=== PATIENT | male | born 1980 | race Caucasian/White ===

== ENCOUNTER 2020-11-28 01:04 | Emergency (ER) | payer SELFPAY ==
[2020-11-28 02:00] LABS: ABSOLUTE BASOPHILS # (AUTO) 0.1 10^3/uL (0.0-0.2); ABSOLUTE EOSINOPHILS # (AUTO) 0.1 10^3/uL (0.0-0.6); ABSOLUTE LYMPHOCYTES (AUTO) 2.7 10^3/uL (0.5-4.7); ABSOLUTE MONOCYTES (AUTO) 0.9 10^3/uL (0.1-1.4); ABSOLUTE NEUT (AUTO) 11.9 10^3/uL (1.7-8.2); BASOPHILS % (AUTO) 0.8 % (0-2); EOSINOPHILS % (AUTO) 0.7 % (0-6); HEMATOCRIT 41.6 % (37.9-51.0); HEMOGLOBIN 13.7 g/dL (13.5-17.0); LYMPHOCYTES % (AUTO) 17.1 % (13-45); MEAN CORPUSCULAR HEMOGLOBIN 27.9 pg (27.0-33.4); MEAN CORPUSCULAR HGB CONC 32.9 g/dL (32.0-36.0); MEAN CORPUSCULAR VOLUME 85 fl (80-97); MONOCYTES % (AUTO) 5.6 % (3-13); PLATELET COUNT 273 10^3/uL (150-450); RED BLOOD COUNT 4.91 10^6/uL (4.35-5.55); RED CELL DISTRIBUTION WIDTH 14.6 % (11.5-14.0); SEGMENTED NEUTROPHILS % (AUTO) 75.8 % (42-78); TOTAL CELLS COUNTED % (AUTO) 100 %; WHITE BLOOD COUNT 15.7 10^3/uL (4.0-10.5)
[2020-11-28 02:13] LABS: ALBUMIN 4.8 g/dL (3.5-5.0); ALKALINE PHOSPHATASE 71 U/L (38-126); ANION GAP 11 (5-19); ASPARTATE AMINO TRANSFERASE 33 U/L (17-59); BILIRUBIN,DIRECT 0.2 mg/dL (0.0-0.4); BILIRUBIN,TOTAL 0.3 mg/dL (0.2-1.3); BLOOD UREA NITROGEN 15 mg/dL (7-20); CALCIUM 9.7 mg/dL (8.4-10.2); CARBON DIOXIDE 27 mmol/L (22-30); CHLORIDE 100 mmol/L (98-107); GLUCOSE 115 mg/dL (75-110); TOTAL PROTEIN 7.9 g/dL (6.3-8.2)
[2020-11-28 02:15] LABS: ACETAMINOPHEN < 10 ug/mL (10-30); ALCOHOL < 10 mg/dL (NONE DETECTED); SALICYLATE < 1.0 mg/dL (2.0-20.0)
[2020-11-28] MEDS ORDERED: NICOTINE 14 MG/24 HR PATCH.TD24 TD ONE (02:57)
--- NOTE | 2020-11-28 03:01 | ER Document Report ---
ED General - Related Data Home Medications: none, stopped taking depakote, Haldol <YU MIR - Last Filed: 11/28/20 03:22> <JENNIFER LOYOLA - Last Filed: 11/28/20 12:32> <CASANDRAGUY Brenden - Last Filed: 11/28/20 13:55> - General Chief Complaint: Suicidal Ideation Stated Complaint: ETOH, SUICIDAL IDEATION Time Seen by Provider: 11/28/20 02:53 Primary Care Provider: [facility] [Outside] - Follow up as needed [facility] [Outside] - Follow up as needed - HPI Notes: Patient is a 40-year-old male with a history of paranoid schizophrenia and bipolar disorder presents the emergency department for evaluation of suicidal ideation. Today is the 1 year anniversary of his leaving him. He states he wants to cut his wrist. He states he has a history of attempting to cut his wrist, states he "nearly ." Denies any homicidal ideation. He also states he hears a voice called "dB." Decibel tells him to kill himself. He denies any visual hallucinations. He is not currently seeing a therapist. He denies any medical complaints. States he is eating and drinking normally. The patient states he stopped drinking alcohol 2 days ago. He was drinking 4 40 ounce beers daily. He denies any history of alcohol withdrawal or seizures. (YU MIR) - Related Data Allergies/Adverse Reactions: No Known Allergies Allergy (Unverified 11/28/20 01:28) Past Medical History - General Information source: Patient - Social History Smoking Status: Current Every Day Smoker Chew tobacco use (# tins/day): No Frequency of alcohol use: Heavy Drug Abuse: Marijuana Family History: None, Reviewed & Not Pertinent Psychiatric Medical History: Reports: Hx Bipolar Disorder, Hx Schizophrenia <YU MIR - Last Filed: 11/28/20 03:22> Review of Systems - Review of Systems Constitutional: No symptoms reported EENT: No symptoms reported Cardiovascular: No symptoms reported Respiratory: No symptoms reported Gastrointestinal: No symptoms reported Genitourinary: No symptoms reported Musculoskeletal: No symptoms reported Skin: No symptoms reported Neurological/Psychological: No symptoms reported <YU MIR - Last Filed: 11/28/20 03:22> Physical Exam <YU MIR - Last Filed: 11/28/20 03:22> - Vital signs Vitals: Temp Pulse Resp BP Pulse Ox 98.5 F 100 20 136/79 H 99 11/28/20 02:54 11/28/20 02:54 11/28/20 02:54 11/28/20 02:54 11/28/20 02:54 - Notes Notes: Vital signs reviewed, please refer to chart. Head is normocephalic, atraumatic. Pupils equal round, reactive to light. Neck is supple without meningismus. Heart is regular rate and rhythm. Lungs are clear to auscultation bilaterally. Abdomen is soft, nontender, normoactive bowel sounds throughout. Extremities without cyanosis, clubbing. Posterior calves are nontender. Peripheral pulses are equal. Skin is warm and dry. Patient is awake, alert, neurological exam is nonfocal. (YU MIR) Course - Laboratory Results Result Diagrams: 11/28/20 01:43 11/28/20 01:43 Critical Laboratory Results Reviewed: No Critical Results - Radiology Results Critical Radiology Results Reviewed: No Critical Results <YU MIR - Last Filed: 11/28/20 03:22> - Laboratory Results Result Diagrams: 11/28/20 01:43 11/28/20 01:43 <JENNIFER LOYOLA - Last Filed: 11/28/20 12:32> - Laboratory Results Result Diagrams: 11/28/20 01:43 11/28/20 01:43 <GUY GUAJARDO - Last Filed: 11/28/20 13:55> - Re-evaluation Re-evalutation: 11/28/20 02:59 Patient presents emergency department for evaluation. Laboratory investigations were ordered as per protocol. His laboratory vesication are largely unremarkable. Still awaiting urinalysis and urine tox screen, but I do not have any suspicion is that this would change medical clearance. The patient denies any urinary symptoms. He admits to occasional marijuana use. His alcohol is negative. He is resting comfortably in the bed, not showing me any signs of alcohol withdrawal. Awaiting EKG. Assuming no significant abnormalities patient is medically cleared. Will consult psychosocial team for further evaluation. 11/28/20 03:23 EKG unremarkable. 11/28/20 03:23 Please note still awaiting urinalysis and urine drug screen, this was communicated to the [facility] covering psych patients. Again I do not suspect any abnormalities given patient's lack of urinary complaints and current mental status. (YU MIR) - Vital Signs Vital signs: Temp Pulse Resp BP Pulse Ox 97.4 F 86 18 122/63 99 11/28/20 09:30 11/28/20 09:41 11/28/20 09:30 11/28/20 09:30 11/28/20 09:30 - Laboratory Results Laboratory Results Interpreted: 11/28/20 11/28/20 01:43 01:43 WBC 15.7 H RDW 14.6 H Absolute Neuts (auto) 11.9 H Glucose 115 H Salicylates < 1.0 L Acetaminophen < 10 L - EKG Interpretation by Me Additional EKG results interpreted by me: 11/28/20 03:23 Sinus mechanism with a rate of 88 bpm. Normal axis and intervals. No acute ST changes concerning for ischemia or infarction. (YU MIR) Discharge <YU MIR - Last Filed: 11/28/20 03:22> <JENNIFER LOYOLA - Last Filed: 11/28/20 12:32> <GUY GUAJARDO - Last Filed: 11/28/20 13:55> - Discharge Clinical Impression: Suicidal ideation Condition: Stable Disposition: HOME, SELF-CARE Additional Instructions: You have been evaluated by both medical and behavioral health teams for passive suicidal ideations. You have been deemed appropriate for discharge. While in the emergency department you received the following services/or had access to: Medical screening and assessment, nursing services, dietary services, pharmacological services, one-on-one counseling and/or psychotherapy, environmental services, and continuous observation by a patient health and safety specialist. Altered Mental Status An altered mental status is a change in the normal functioning of the brain. This alteration of function can range from minor decreased brain function with some forgetfulness and confusion to complete loss of consciousness and coma. There are many possible causes of an altered mental status and include brain injuries such as trauma or strokes, problems with oxygen supply to the brain, fever and infections of the brain and/or elsewhere in the body, metabolic abnormalities such as low or high blood sugar, overdoses or excessive medication ingestion, and mental and psychiatric illnesses. Sometimes the altered mental status resolves and a definite cause is not determined. If a cause for your altered mental status was found, it has likely been corrected. Your evaluation has not shown any condition that requires that you be admitted to the hospital. It is believed that you are safe to leave and return to your home. If you have a return of your symptoms, you should return for re-evaluation. Follow up care: You are currently not involved in outpatient services, but are highly recommended to begin outpatient services. You will benefit from outpatient therapy in learning how to identify your stressors and learn healthy coping s kills. You are highly recommended to abstain from illegal drug use. You have been given a community outpatient referral list to include phone numbers for [facility] and [facility] mobile crisis. You were also given community resources for shelters and food sil[place] for you to look into and attempt to follow up with. Additionally, you have been given a resource sheet for online meetings for AA/NA and other substance use facilities to include [facility]. If you experience worsening or a significant change in your symptoms, notify the physician immediately, utilize mobile crisis, or return to the Emergency Department at any time for re-evaluation. You have denied further voluntary psychiatric treatment at [facility]. You also denied wanting to utilize [employer] phones to call shelters for temporary assistance. You stated you do not need to call for a ride and will walk to your next location upon discharge. Dr. Meeks was consulted to care management of this patient; attending physicians in agreement with recommendations and disposition. Referrals: [facility] [Outside] - Follow up as needed [facility] [Outside] - Follow up as needed FILIBERTO CAMEJO MD [COMMUNITY BASED STAFF] - Follow up as needed
[2020-11-28] MEDS ORDERED: ONDANSETRON 4 MG TAB.RAPDIS PO PRN (03:33)
[2020-11-28 06:14] LABS: APPEARANCE,URINE CLEAR; BILIRUBIN,URINE NEGATIVE (NEGATIVE); COLOR,URINE YELLOW; GLUCOSE, URINE NEGATIVE (NEGATIVE); KETONES,URINE NEGATIVE (NEGATIVE); LEUKOCYTE ESTERASE,URINE NEGATIVE (NEGATIVE); NITRITE,URINE NEGATIVE (NEGATIVE); PROTEIN,URINE NEGATIVE (NEGATIVE); URINE SPECIFIC GRAVITY 1.015; UROBILINOGEN,URINE NEGATIVE mg/dL (<2.0)
[2020-11-28 06:31] LABS: URINE AMPHETAMINES SCREEN NEGATIVE; URINE BENZODIAZEPINES SCREEN NEGATIVE; URINE COCAINE SCREEN NEGATIVE; URINE METHADONE SCREEN NEGATIVE; URINE PHENCYCLIDINE SCREEN NEGATIVE
[2020-11-28 06:34] LABS: URINE BARBITURATES SCREEN UNCONFIRMED POSITIVE; URINE MARIJUANA (THC) SCREEN UNCONFIRMED POSITIVE
[2020-11-28 09:37] VITALS: BP 122/63
--- NOTE | 2020-11-28 18:47 | PSYCHOLOGICAL NOTE ---
Psych Note - Psych Note Date seen by psych provider: 11/28/20 Time seen by psych provider: 10:47 Psych Note: Reason for Consult: suicidal ideation [id number] Patient is a 40 year old male who was admitted to the ED via POV for suicidal ideation. Patient denies current suicidal ideation, plan, and intent. He denies mental health history to include psychiatric treatment and suicide attempts. Patient reports his and he a year ago and he was feeling sad about this. Patient states it was the weed when talking about feeling sad and making a suicidal statement. Patient is a poor historian and states he has been admitted to a substance use facility in the past, but cannot recall when and where. Patient is homeless and states he lives outside and is requesting to get a few hours of sleep in the ED before being discharged. He states he has nobody to call and will be walking to his next destination. Patient was alert and oriented to self, person, place, time and situation. Mood was euthymic with congruent affect. He denies current suicidal and homicidal ideation, plan, and intent. Patient did not appear to be responding to internal stimuli as evidenced by fair eye contact and answering questions appropriately when addressed. Thought processes are linear and organized. Conversational speech was within normal limits for rate, tone and prosody. Intellectual abilities are estimated to be average. Insight and judgment were fair evidenced by making plans to get to [employer]. Patient engages appropriately. He demonstrates future forward goal oriented thinking as he talks about wanting to get to [employer] before 1500, when it closes, to get more clothing. Clinical Presentation: suicidal ideations, denies plan and intent IVC Criteria per [place] GS 122C Dangerous to others Within the relevant past the individual No has inflicted or attempted to inflict or threatened to inflict serious bodily harm on another AND No that there is a reasonable probability that this conduct will be repeated. OR No has acted in such a way as to create a substantial risk of serious bodily harm to another AND No that there is a reasonable probability that this conduct will be repeated. OR No has engaged in extreme destruction of property AND NO that there is a reasonable probability that this conduct will be repeated. Previous episodes of dangerousness to others, when applicable, may be considered when determining reasonable probability of future dangerous conduct. Clear, cogent, and convincing evidence that an individual has committed a homicide in the relevant past is prima facie evidence of dangerousness to others. Dangerous to self Within the relevant past the individual has done any of the following: acted in such a way as to show ALL of the following: No The individual would be unable without care, supervision, and the continued assistance of others not otherwise available, to exercise self- control, judgment, and discretion in the conduct of the individual's daily responsibilities and social relations or to satisfy the individual's need for nourishment, personal or medical care, mcfp, or self-protection and safety. AND No There is a reasonable probability of the individual suffering serious physical debilitation within the near future unless adequate treatment is given. A showing of behavior that is grossly irrational, of actions that the individual is unable to control, of behavior that is grossly inappropriate to the situation, or of other evidence of severely impaired insight and judgment shall create a prima facie inference that the individual is unable to care for himself or herself. OR Yes has attempted suicide or threatened suicide Passive SI prior to admission to ED AND No that there is a reasonable probability of suicide unless adequate treatment is given Denies current SI, plan, and intent; reports being related to smoking THC; demonstrates future forward goal oriented thinking as he talks about wanting to get to [employer] before 1500, when it closes, to get more clothing. OR No has mutilated himself or herself or attempted to mutilate himself or herself AND No that there is a reasonable probability of serious self-mutilation unless adequate treatment is given. NOTE: Previous episodes of dangerousness to self, when applicable, may be considered when determining reasonable probability of physical debilitation, suicide, or self-mutilation. Impression\plan: Patient is cleared from psychiatric services. He was admitted to the ED for suicidal ideations. Upon assessment, patient denies current SI, plan, and intent. Patient demonstrates future forward goal oriented thinking as he talks about going to [employer] to get clothing today prior to closing at 1500. Patient states he is homeless. He declines further psychiatric treatment at [facility]. He reports no mental health history, but reports THC use. Patient was given community resource sheet for outpatient services, mobile crisis ([facility] and [facility]), mcfp and food options, online substance use meetings, and substance use/detox facility options. At this time he continues to decline wanting to go to [place] [facility]. Patient was informed to utilize mobile crisis or return to the ED if his symptoms worsen or return. Dr. Meeks was consulted to care management of this patient; attending physicians in agreement with recommendations and disposition.
--- NOTE | 2020-11-28 19:10 | ER Document Report ---
Doctor's Note Notes: 11/28/20 19:09 Patient's vital signs and previous labs, diagnostic images reviewed. Reviewed mental health notes, nurse's notes and previous providers notes. VSS. Pt is in no distress at this time. Denies any SI or HI. Patient medically cleared last night General: A&Ox3. Answers questions appropriately. Heart: RRR Lungs: CTAB Psych: Flat affect A/P: Continue monitoring and rec's per MH. Normal diet plan: discharge home
--- NOTE | 2020-11-30 20:40 | EKG REPORT ---
SEVERITY:- NORMAL ECG - SINUS RHYTHM : Confirmed by: Ronda Cruz MD 30-Nov-2020 20:39:39
== END 2020-11-28 13:54 | disposition home or self-care (01) ==
LOC: ER 01:04
DX: R45.851 Suicidal ideations (principal); F17.200 Nicotine dependence, unspecified, uncomplicated; F12.10 Cannabis abuse, uncomplicated; Z63.5 Disruption of family by separation and divorce; Z59.0 Homelessness
CPT/HCPCS: 36415; 80053; 80307; 81001; 85025; 93005; 93010; 99285

== ENCOUNTER 2020-11-29 00:33 | Emergency (ER) | payer SELFPAY ==
--- NOTE | 2020-11-29 00:53 | ER Document Report ---
ED Medical Screen (RME) - General Chief Complaint: Psych Problem Stated Complaint: PSYCH Time Seen by Provider: 11/29/20 00:47 Mode of Arrival: Ambulatory Information source: Patient - HPI Patient complains to provider of: [facility] Notes: 11/29/20 00:52 Patient here with complaints of suicidal ideation. The patient was recently seen and evaluated here and was cleared by psych. States that he smoked marijuana and is now having suicidal ideation. He states that he would cut his wrist. He also tells me that he burned himself and shows me a blister on the palm of his right hand where he states he burned himself with a integration manager. He is supposed to be on Depakote, Haldol and Thorazine but does not take it. He is a former alcoholic. He smokes weed daily. Exam: No distress, nontoxic appearing. Lungs clear and equal throughout. Heart sounds normal. Complaints of suicidal ideation. Cooperative at this time. An initial examination was made on the patient as part of the triage process, and it was determined a more comprehensive evaluation was necessary. Initial orders were placed and patient was transferred to another provider in the ED who assumed care and finished evaluation and plan. Based on patient's complaints of suicidal ideation, IVC protocol has been ordered and the patient has been taken directly back to room 19. - Related Data Allergies/Adverse Reactions: No Known Allergies Allergy (Unverified 11/28/20 01:28) Past Medical History - Past Medical History Cardiac Medical History: Denies: Hx Atrial Fibrillation, Hx Congestive Heart Failure, Hx Heart Attack, Hx Hypercholesterolemia, Hx Hypertension Pulmonary Medical History: Denies: Hx Asthma, Hx Bronchitis, Hx COPD, Hx Pneumonia, Hx Tuberculosis Neurological Medical History: Denies: Hx Migraine, Hx Seizures Endocrine Medical History: Denies: Hx Diabetes Mellitus Type 1, Hx Diabetes Mellitus Type 2 Renal/ Medical History: Denies: Hx End Stage Renal Disease, Hx Kidney Stones GI Medical History: Denies: Hx Gastroesophageal Reflux Disease, Hx Hiatal Hernia, Hx Ulcer Musculoskeltal Medical History: Denies Hx Arthritis Psychiatric Medical History: Reports: Hx Bipolar Disorder, Hx Depression, Hx Schizophrenia Denies: Hx Attention Deficit Hyperactivity Disorder
[2020-11-29 01:13] VITALS: BP 135/68
[2020-11-29 01:15] LABS: ABSOLUTE BASOPHILS # (AUTO) 0.1 10^3/uL (0.0-0.2); ABSOLUTE EOSINOPHILS # (AUTO) 0.2 10^3/uL (0.0-0.6); ABSOLUTE LYMPHOCYTES (AUTO) 3.2 10^3/uL (0.5-4.7); ABSOLUTE MONOCYTES (AUTO) 0.6 10^3/uL (0.1-1.4); ABSOLUTE NEUT (AUTO) 6.7 10^3/uL (1.7-8.2); BASOPHILS % (AUTO) 0.8 % (0-2); HEMATOCRIT 40.8 % (37.9-51.0); LYMPHOCYTES % (AUTO) 29.5 % (13-45); MEAN CORPUSCULAR HEMOGLOBIN 28.9 pg (27.0-33.4); MEAN CORPUSCULAR HGB CONC 34.2 g/dL (32.0-36.0); MEAN CORPUSCULAR VOLUME 85 fl (80-97); MONOCYTES % (AUTO) 5.5 % (3-13); PLATELET COUNT 276 10^3/uL (150-450); RED BLOOD COUNT 4.82 10^6/uL (4.35-5.55); RED CELL DISTRIBUTION WIDTH 14.8 % (11.5-14.0); SEGMENTED NEUTROPHILS % (AUTO) 62.2 % (42-78); TOTAL CELLS COUNTED % (AUTO) 100 %; WHITE BLOOD COUNT 10.8 10^3/uL (4.0-10.5)
[2020-11-29 01:34] LABS: ACETAMINOPHEN < 10 ug/mL (10-30); ALBUMIN 4.5 g/dL (3.5-5.0); ALCOHOL < 10 mg/dL (NONE DETECTED); ALKALINE PHOSPHATASE 77 U/L (38-126); ANION GAP 11 (5-19); ASPARTATE AMINO TRANSFERASE 39 U/L (17-59); BILIRUBIN,DIRECT 0.3 mg/dL (0.0-0.4); BILIRUBIN,TOTAL 0.3 mg/dL (0.2-1.3); BLOOD UREA NITROGEN 14 mg/dL (7-20); CALCIUM 9.8 mg/dL (8.4-10.2); CARBON DIOXIDE 30 mmol/L (22-30); CHLORIDE 100 mmol/L (98-107); GLUCOSE 93 mg/dL (75-110); POTASSIUM 3.7 mmol/L (3.6-5.0); SALICYLATE < 1.0 mg/dL (2.0-20.0); TOTAL PROTEIN 7.6 g/dL (6.3-8.2)
[2020-11-29] MEDS ORDERED: HALOPERIDOL 5 MG TABLET PO ONE (01:47)
--- NOTE | 2020-11-29 01:49 | ER Document Report ---
ED Psych Disorder / Suicide - General Chief Complaint: Psych Problem Stated Complaint: PSYCH Time Seen by Provider: 11/29/20 00:47 Mode of Arrival: Ambulatory Notes: Patient is a 40-year-old male that comes emergency department for chief complaint of suicidal ideation. He states that he was seen yesterday, went home, he states he was planning on cutting open his wrist with a steak knife, he states that "my friend Octavio talked me out of it and called me a cab to get here". He states he just does not have any reason to live anymore. He has attempted suicide in the past including lacerating his left wrist. Patient states that he has nowhere to go, he has been from his for 3 years, he just smokes weed and thinks about, himself. He states he is supposed be on Depakote, Haldol, and Thorazine but he does not have any of these with him now. He states he was diagnosed with both schizophrenia and bipolar disorder. He denies any sick symptoms including fever, cough, shortness of breath, vomi ting. He denies recreational drugs other than marijuana. - Related Data Allergies/Adverse Reactions: No Known Allergies Allergy (Unverified 11/28/20 01:28) Past Medical History - General Information source: Patient - Social History Smoking Status: Current Every Day Smoker Chew tobacco use (# tins/day): No Frequency of alcohol use: Occasional Drug Abuse: Marijuana Lives with: Alone Family History: None, Reviewed & Not Pertinent Patient has homicidal ideation: No - Past Medical History Cardiac Medical History: Denies: Hx Atrial Fibrillation, Hx Congestive Heart Failure, Hx Heart Attack, Hx Hypercholesterolemia, Hx Hypertension Pulmonary Medical History: Denies: Hx Asthma, Hx Bronchitis, Hx COPD, Hx Pneumonia, Hx Tuberculosis Neurological Medical History: Denies: Hx Migraine, Hx Seizures Endocrine Medical History: Denies: Hx Diabetes Mellitus Type 1, Hx Diabetes Mellitus Type 2 Renal/ Medical History: Denies: Hx End Stage Renal Disease, Hx Kidney Stones GI Medical History: Denies: Hx Gastroesophageal Reflux Disease, Hx Hiatal Hernia, Hx Ulcer Musculoskeletal Medical History: Denies Hx Arthritis Psychiatric Medical History: Reports: Hx Bipolar Disorder, Hx Depression, Hx Schizophrenia Denies: Hx Attention Deficit Hyperactivity Disorder Review of Systems - Review of Systems Constitutional: No symptoms reported EENT: No symptoms reported Cardiovascular: No symptoms reported Respiratory: No symptoms reported Gastrointestinal: No symptoms reported Genitourinary: No symptoms reported Male Genitourinary: No symptoms reported Musculoskeletal: No symptoms reported Skin: No symptoms reported Hematologic/Lymphatic: No symptoms reported Neurological/Psychological: See HPI Physical Exam - Vital signs Vitals: Temp 98.0 F 11/29/20 01:04 - Notes Notes: GENERAL: Alert, interactive HEAD: Normocephalic, atraumatic. EYES: Pupils equal, round, and reactive to light. Extraocular movements intact. ENT: Oral mucosa moist, tongue midline. Oropharynx unremarkable. Airway patent. NECK: Full range of motion. Supple. Trachea midline. No lymphadenopathy. LUNGS: Clear to auscultation bilaterally, no wheezes, rales, or rhonchi. No r espiratory distress. Non-tender chest wall. HEART: Regular rate and rhythm. No murmur ABDOMEN: Soft, non-tender. Non-distended. EXTREMITIES: Moves all 4 extremities spontaneously. No edema, normal radial and dorsalis pedis pulses bilaterally. No cyanosis. BACK: no cervical, thoracic, lumbar midline tenderness. No saddle anesthesia, normal distal neurovascular exam. Moves all extremities in full range of motion. NEUROLOGICAL: Alert and oriented x3. Normal speech. Cranial nerves II through XII grossly intact. Strength 5/5 in all extremities. PSYCH: Patient talkative, very easily distracted, scattered and tangential conversation. Poor eye contact. Cooperative. SKIN: Warm, dry, normal turgor. No rashes or lesions noted. Course - Re-evaluation Re-evalutation: Patient is unkempt, slightly bizarre, but he is cooperative. Physical exam unremarkable otherwise. Vital signs unremarkable. CBC, chemistry, toxicology screen, EKG unremarkable. Patient is medically cleared. Patient has already been placed on IVC paperwork by provider in triage and Dr. Simms, because he is endorsing suicidal ideations with a plan (in addition to having scars on his left wrist from previous attempt) patient will remain on 24-hour hold paperwork pending mental health evaluation. Patient in agreement. After he was given Haldol he fell asleep, on reevaluation he was sleeping peacefully. - Vital Signs Vital signs: Temp Pulse Resp BP Pulse Ox 98.0 F 80 16 135/68 H 100 11/29/20 01:12 11/29/20 01:12 11/29/20 01:12 11/29/20 01:12 11/29/20 01:12 - Laboratory Results Result Diagrams: 11/29/20 01:00 11/29/20 01:05 Laboratory Results Interpreted: 11/29/20 11/29/20 01:00 01:05 WBC 10.8 H RDW 14.8 H Salicylates < 1.0 L Acetaminophen < 10 L Critical Laboratory Results Reviewed: No Critical Results - Radiology Results Critical Radiology Results Reviewed: No Critical Results - EKG Interpretation by Me Additional EKG results interpreted by me: EKG shows sinus rhythm at a rate of 83, QTc 437, borderline left axis deviation, no T wave inversions or ST segment changes in consecutive leads. Discharge - Discharge Clinical Impression: Suicidal ideation, Nonadherence to medication Condition: Stable Disposition: PSYCH HOSP/UNIT
[2020-11-29 01:50] LABS: APPEARANCE,URINE CLEAR; BILIRUBIN,URINE NEGATIVE (NEGATIVE); COLOR,URINE YELLOW; GLUCOSE, URINE NEGATIVE (NEGATIVE); KETONES,URINE NEGATIVE (NEGATIVE); LEUKOCYTE ESTERASE,URINE NEGATIVE (NEGATIVE); NITRITE,URINE NEGATIVE (NEGATIVE); PROTEIN,URINE NEGATIVE (NEGATIVE); UROBILINOGEN,URINE NEGATIVE mg/dL (<2.0)
[2020-11-29 02:06] LABS: URINE AMPHETAMINES SCREEN NEGATIVE; URINE BENZODIAZEPINES SCREEN NEGATIVE; URINE COCAINE SCREEN NEGATIVE; URINE METHADONE SCREEN NEGATIVE; URINE PHENCYCLIDINE SCREEN NEGATIVE
[2020-11-29 02:08] LABS: URINE BARBITURATES SCREEN UNCONFIRMED POSITIVE; URINE MARIJUANA (THC) SCREEN UNCONFIRMED POSITIVE
--- NOTE | 2020-11-29 11:39 | EKG REPORT ---
SEVERITY:- OTHERWISE NORMAL ECG - SINUS RHYTHM BORDERLINE LEFT AXIS DEVIATION : Confirmed by: Ronda Cruz MD 29-Nov-2020 11:38:09
--- NOTE | 2020-11-29 11:54 | PSYCHOLOGICAL NOTE ---
Psych Note - Psych Note Date seen by psych provider: 11/29/20 Time seen by psych provider: 10:35 Psych Note: Reason for Consult:Suicidal ideation Consent Permissions: none provided Patient arrived to [facility] via POV for thoughts of wanting to harm himself. Patient disclosed that he was with his friend last night and had suicidal ideation with a plan of cutting himself. He reports that his friend had a knife however he does not have possession of this knife or any other knife. Patient reports he came to [facility] when having these thoughts. He confirms he did not follow-up with mental health recommendations yesterday and did not take any of his discharge paperwork which included local resource information. Patient admits to having no history of mental health or engaging in self-harm behavior. Patient is alert and orientated to person, place, time and circumstance. Mood is euthymic with congruent affect. Patient denies current suicidal ideation reporting passive suicidal ideation i.e. no plans means or intent last night. Clinician notes patient reported thoughts of using a knife however never had possession of the knife and does not own a knife personally. Patient denies homicidal ideation. Delusions are absent and behaviors congruent with an intact reality based presentation i.e. organized and linear thought process. Thought content is goal orientated. Eye contact was poor as patient is interested in sleeping. Intellectual abilities appear to be thin the average range. Attention and concentration are fair. Insight, judgment, impulse control are fair. Clinical Presentation: Homelessness Passive suicidal ideation i.e. no plans means or intent IVC Criteria per [facility] 122C Dangerous to others Within the relevant past the individual No has inflicted or attempted to inflict or threatened to inflict serious bodily harm on another AND No that there is a reasonable probability that this conduct will be repeated as there is an absence of supervision or structure to prevent. OR No has acted in such a way as to create a substantial risk of serious bodily harm to another AND No that there is a reasonable probability that this conduct will be repeated as there is an absence of supervision or structure to prevent. OR No has engaged in extreme destruction of property AND NO that there is a reasonable probability that this conduct will be repeated as there is an absence of supervision or structure to prevent. Previous episodes of dangerousness to others, when applicable, may be considered when determining reasonable probability of future dangerous conduct. Clear, cogent, and convincing evidence that an individual has committed a homicide in the relevant past is prima facie evidence of dangerousness to others. Dangerous to self Within the relevant past the individual has done any of the following: acted in such a way as to show ALL of the following: No The individual would be unable without care, supervision, and the continued assistance of others not otherwise available, to exercise self- control, judgment, and discretion in the conduct of the individual's daily responsibilities and social relations or to satisfy the individual's need for nourishment, personal or medical care, retirement, or self-protection and safety. AND No There is a reasonable probability of the individual suffering serious physical debilitation within the near future unless adequate treatment is given. A showing of behavior that is grossly irrational, of actions that the individual is unable to control, of behavior that is grossly inappropriate to the situation, or of other evidence of severely impaired insight and judgment shall create a prima facie inference that the individual is unable to care for himself or herself. OR yes has attempted suicide or threatened suicide AND No that there is a reasonable probability of suicide unless adequate treatment is given as there is an absence of supervision or structure to prevent suicide of patient who has made an attempt, serious gesture or threat. Clinician notes patient denies current thoughts of suicidal ideation. Patient disclosed thoughts last night and was going to use a knife. He denies owning a knife reporting that it was his friend's knife. He does not have possession of this knife. Patient does not have a history of engaging in self-harm behavior. OR No has mutilated himself or herself or attempted to mutilate himself or herself AND No that there is a reasonable probability of serious self-mutilation unless adequate treatment is given as there is an absence of supervision or structure to prevent. NOTE: Previous episodes of dangerousness to self, when applicable, may be considered when determining reasonable probability of physical debilitation, suicide, or self-mutilation. Impression\plan: Patient is Recommended for rescind of 24 hour petition for evaluation and is cleared from acute psychiatric services; paperwork is signed and placed in patient's chart. Patient reports that he had suicidal ideation last night with thoughts of using his friend's knife. He does not have possession of this knife, and did not cut himself and came to the emergency depa rtment voluntarily reporting these thoughts. Clinician notes patient was evaluated yesterday in which the patient denies history of suicidal ideation or engaging in self-harm; however, admits to substance abuse and homelessness. Patient was provided psychoeducation on the importance of using emergency services appropriately and is encouraged to follow-up with substance abuse treatment. Patient reports that he does not have his discharge paperwork from yesterday which included local resources; this will be provided again today to him. Dr. Meeks was consulted to care management of this patient; attending physician in agreement with recommendations and disposition.
--- NOTE | 2020-11-29 12:45 | ER Document Report ---
Doctor's Note Notes: 11/29/20 12:44 Patient's vital signs and previous labs, diagnostic images reviewed. Reviewed mental health notes, nurse's notes and previous providers notes. VSS. Pt is in no distress at this time. Denies any SI or HI at this time. Patient would like to leave has been medically and psychologically cleared. General: A&Ox3. Answers questions appropriately. Heart: RRR Lungs: CTAB Psych: Flat affect A/P: Continue monitoring and rec's per MH. Normal diet plan: discharge home
== END 2020-11-29 13:20 | disposition home or self-care (01) ==
LOC: ER 00:33
DX: R45.851 Suicidal ideations (principal); Z59.0 Homelessness; Z91.14 Patient's other noncompliance with medication regimen; F31.9 Bipolar disorder, unspecified; F20.9 Schizophrenia, unspecified; F17.200 Nicotine dependence, unspecified, uncomplicated
CPT/HCPCS: 36415; 80053; 80307; 81001; 85025; 93005; 93010; 99285